=== PATIENT | female | born 2000 | race Caucasian/White ===

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

== ENCOUNTER 2020-11-26 12:05 | Emergency (ER) | payer BC ==
[~2020-11-26] VITALS: Ht 165.1 cm; Wt 58.9 kg
[2020-11-26 12:45] VITALS: BP 134/88
--- NOTE | 2020-11-26 13:59 | ED Back Pain ---
General Chief Complaint: Back Problems Stated Complaint: BACK PAIN Nursing Triage Note: pt reports slipping and falling on ice aroud 0600 this am. denies loc or hitting head. pt reports back pain from middle of back into neck. pt moves all extremities without difficulty or pain. pt had back surgery 2 years ago and is awaiting a second surgery. pt called physician who performed first back surgery and was told to come to the ed for evaluation today and he would see her in office tomorrow. Nursing Sepsis Screen: No Definite Risk Source of Information: Patient Exam Limitations: No Limitations History of Present Illness Date Seen by Provider: Nov 26, 2020 Time Seen by Provider: 13:55 Initial Comments This is a well-appearing 20-year-old female who presents to the ER with her mother with complaints of neck pain and upper back pain. States she was walking on sidewalk when she slipped and fell around 6:00 this morning. Denies hitting her head or having loss of consciousness. States that when she fell she fell forward and towards the right. Mom reports that patient had prior back surgery 2 years ago and is currently awaiting a second surgery. States she called her surgeon and was advised to seek ED treatment and he would follow-up with her tomorrow. She rates 8/10. Took 2 Tylenol this morning with minimal relief. She denies numbness tingling loss of sensation. Denies low back pain, hip pain, knee or arm/ shoulder pain. Location: C-Spine, T-Spine Allergies and Home Medications Allergies Coded Allergies: No Known Drug Allergies (Unverified , 09/14/17) Home Medications Cyclobenzaprine HCl 10 Mg Tablet, 10 MG PO Q8H PRN for SPASMS Prescribed by: VALDEZ BECKER on 11/26/20 1539 Patient Home Medication List Home Medication List Reviewed: Yes Review of Systems Constitutional: no symptoms reported EENTM: no symptoms reported Respiratory: no symptoms reported Cardiovascular: no symptoms reported Gastrointestinal: no symptoms reported Genitourinary: no symptoms reported Musculoskeletal: see HPI Skin: no symptoms reported Psychiatric/Neurological: No Symptoms Reported Past Jaiwznq-Kencqk-Ugynaw Hx Patient Social History Alcohol Use: Denies Use Smoking Status: Never a Smoker Recent Infectious Disease Expo: No Recent Hopitalizations: No Immunizations Up To Date PED Vaccines UTD: Yes Seasonal Allergies Seasonal Allergies: Yes Past Medical History Surgeries: Yes (WISDOM TEETH) Adenoidectomy, Orthopedic Respiratory: No Cardiac: No Neurological: Yes Headaches /Migraines Reproductive Disorders: No Female Reproductive Disorders: Denies Sexually Transmitted Disease: No HIV/AIDS: No Genitourinary: No Gastrointestinal: No Chronic Constipation Musculoskeletal: Yes (HX FX RADIUS) Fractures Endocrine: No HEENT: No Loss of Vision: Denies Hearing Impairment: Denies Cancer: No Psychosocial: No Integumentary: No Blood Disorders: No Adverse Reaction/Blood Tranf: No (N/A) Physical Exam Vital Signs Vital Signs - First Documented 11/26/20 12:45 Temp 36.9 Pulse 103 Resp 14 B/P (MAP) 134/88 (103) Pulse Ox 100 O2 Delivery Room Air Capillary Refill : Less Than 3 Seconds Height, Weight, BMI Height: 5'6.00" Weight: 145lbs. 0.0oz. [id number]; 21.00 BMI Method: General Appearance: No Apparent Distress, WD/WN HEENT: PERRL/EOMI, Normal ENT Inspection Neck: Normal Inspection, Supple, Tender Midline Cardiovascular: Regular Rate, Rhythm, Normal Peripheral Pulses Respiratory: Lungs Clear, Normal Breath Sounds Gastrointestinal: Normal Bowel Sounds, Non Tender, Soft Back: Normal Inspection, No CVA Tenderness, Vertebral Tenderness (Thoracic spine T1-T5) Extremity: Normal Capillary Refill, Normal Inspection, Normal Range of Motion, Non Tender, No Pedal Edema Neurologic/Psychiatric: Alert, Oriented x3, No Motor/Sensory Deficits, Normal Mood/Affect Skin: Normal Color, Warm/Dry Progress/Results/Core Measures Results/Orders My Orders Orders - VALDEZ BECKER APRN Cervical Collar (11/26/20 13:59) Ct Cervical Spine Wo (11/26/20 13:59) T-Spine 3v-Ap, Lat, Swimmers (11/26/20 13:59) Urine Bedside - Sdc (11/26/20 13:59) Orphenadrine Inj (Ed Only) (Norflex Inje (11/26/20 14:00) Ketorolac Injection (Toradol Injection) (11/26/20 14:00) Medications Given in ED Current Medications Medications Dose Ordered Sig/Fanny Route Start Time Stop Time Status Last Admin Dose Admin Ketorolac Tromethamine 30 mg ONCE ONCE IM 11/26/20 14:00 11/26/20 14:02 DC 11/26/20 14:23 30 MG Orphenadrine Citrate 60 mg ONCE ONCE IM 11/26/20 14:00 11/26/20 14:02 DC 11/26/20 14:23 60 MG Vital Signs/I&O 11/26/20 12:45 Temp 36.9 Pulse 103 Resp 14 B/P (MAP) 134/88 (103) Pulse Ox 100 O2 Delivery Room Air Blood Pressure Mean: 103 Progress Progress Note : Progress Note Patient examined and in no acute distress. Offered Norflex 60 mg IM and Toradol 30 mg IM for pain which she is agreeable to try. Will obtain T-spine x-rays and CT of C-spine at this time. Reports some improvement in pain with Toradol and Norflex. Images reviewed and there is no acute pathology identified on radiographs or CT. Discussed findings with patient and mother she has follow-up with her surgeon tomorrow. Prescription provided for Flexeril. Reviewed discharge plan of care and she is agreeable with plan. All questions and concerns addressed prior to discharge. Diagnostic Imaging Diagonstic Imaging: Xray Plain Films/CT/US/NM/MRI: other Comments NAME: HOLLAND RICHARDS [facility] REC#: [id number] PT STATUS: REG ER : 2000 PHYSICIAN: VALDEZ BECKER APRN ADMIT DATE: 11/26/20/ER Signed Date of Exam:11/26/20 T-SPINE 3V-AP, LAT, SWIMMERS INDICATION: Fall and back pain. TIME OF EXAM: 3:01 PM. FINDINGS: Frontal and lateral views of the thoracic spine were obtained. The curvature and alignment of the thoracic spine are normal. The vertebral body heights are maintained. The pedicles are intact. The paraspinous line is intact. No fractures are seen. IMPRESSION: No acute bony abnormality is detected. Dictated by: Dictated on workstation # [id number] Dict: 11/26/20 1510 Trans: 11/26/20 161 [id number] Interpreted by: CAMRYN CRAWFORD MD Electronically signed by: CAMRYN CRAWFORD MD 11/26/201609 Reviewed: Reviewed by Me Diagonstic Imaging: CT Plain Films/CT/US/NM/MRI: head Comments NAME: HOLLAND RICHARDS [facility] REC#: [id number] PT STATUS: REG ER : 2000 PHYSICIAN: VALDEZ BECKER APRN ADMIT DATE: 11/26/20/ER Signed Date of Exam:11/26/20 CT CERVICAL SPINE WO PROCEDURE: CT cervical spine without contrast. TECHNIQUE: Multiple contiguous axial images were obtained through the cervical spine without the use of intravenous contrast. Sagittal and coronal reformations were then performed. Auto Exposure Controls were utilized during the CT exam to meet ALARA standards for radiation dose reduction. INDICATION: Fall with posterior neck pain. FINDINGS: The curvature and alignment of the cervical spine are normal. No fracture or subluxation is identified. The prevertebral tissues are within normal limits. The odontoid is intact. IMPRESSION: No acute bony abnormality is detected. Dictated by: Dictated on workstation # [id number] Dict: 11/26/20 1503 Trans: 11/26/20 1610 [id number] Interpreted by: CAMRYN CRAWFORD MD Electronically signed by: CAMRYN CRAWFORD MD 11/26/20 1610 Reviewed: Reviewed by Me Departure Impression Primary Impression: Fall on same level Additional Impressions: Neck pain Muscle strain of upper back Disposition: 01 HOME, SELF-CARE Condition: Improved Departure-Patient Inst. Decision time for Depature: 15:37 Referrals: NEAL JEFFRIES DO (PCP/Family) Primary Care Physician Patient Instructions: Back Muscle Strain (DC) Add. Discharge Instructions: Plan: 1. Discharge home. 2. Rest, ice/heat 20 minutes at a time every couple of hours for swelling and pain. 3. May take Tylenol or Ibuprofen as needed for pain per package directions. Do not take more than directed. 4. May take Flexeril as needed every 8 hours for severe pain. Do not drive while taking. 5. Follow up with your primary care provider if symtpoms persist. All discharge instructions reviewed with patient and/or family. Voiced understanding. Scripts Cyclobenzaprine HCl (Cyclobenzaprine HCl) 10 Mg Tablet 10 MG PO Q8H PRN for SPASMS, #15 TAB 0 Refills Prov: VALDEZ BECKER APRN 11/26/20 VALDEZ BECKER APRN Nov 26, 2020 13:59
[2020-11-26] MEDS ORDERED: KETOROLAC 30 MG/ML VIAL IM ONE (14:00)
[2020-11-26] MEDS ORDERED: ORPHENADRINE 60 MG/2 ML (NORFLEX) AMP (ED ONLY) IM ONE (14:00)
--- NOTE | 2020-11-26 15:07 | Diagnostic Imaging Report ---
PROCEDURE: CT cervical spine without contrast. TECHNIQUE: Multiple contiguous axial images were obtained through the cervical spine without the use of intravenous contrast. Sagittal and coronal reformations were then performed. Auto Exposure Controls were utilized during the CT exam to meet ALARA standards for radiation dose reduction. INDICATION: Fall with posterior neck pain. FINDINGS: The curvature and alignment of the cervical spine are normal. No fracture or subluxation is identified. The prevertebral tissues are within normal limits. The odontoid is intact. IMPRESSION: No acute bony abnormality is detected. Dictated by: Dictated on workstation # [id number]
--- NOTE | 2020-11-26 15:12 | Diagnostic Imaging Report ---
INDICATION: Fall and back pain. TIME OF EXAM: 3:01 PM. FINDINGS: Frontal and lateral views of the thoracic spine were obtained. The curvature and alignment of the thoracic spine are normal. The vertebral body heights are maintained. The pedicles are intact. The paraspinous line is intact. No fractures are seen. IMPRESSION: No acute bony abnormality is detected. Dictated by: Dictated on workstation # [id number]
[2020-11-26] MEDS ORDERED: CYCL10TA9 PO (15:39)
== END 2020-11-26 15:43 | disposition home or self-care (01) ==
LOC: EDUNIT# 12:05 → ER 12:06
DX: S29.012A Strain of muscle and tendon of back wall of thorax, initial encounter (principal); M54.2 Cervicalgia; W01.0XXA Fall on same level from slipping, tripping and stumbling without subsequent striking against object, initial encounter
CPT/HCPCS: 72072; 72125; 84703